=== PATIENT | female | born 1950 | race African-American/Black ===

== ENCOUNTER 2022-07-15 16:25 | Inpatient (IN) | payer OTHER, MEDICARE ==
[~2022-07-15] VITALS: Ht 91.4 cm; Wt 81.3 kg
[2022-07-15] MEDS ORDERED: ACETAMINOPHEN 650MG SUPP PR STA (17:12)
[2022-07-15] MEDS ORDERED: VANCOMYCIN 1G PREMIX 200 ML IV ONE (17:15)
[2022-07-15] MEDS ORDERED: PIPERACILLIN/TAZ 3.375G PREMIX 50 ML IV ONE (17:15)
[2022-07-15 17:37] LABS: HEMATOCRIT. 31.4 % (36.0-48.0); HEMOGLOBIN. 10.1 g/dL (12.0-16.0); MEAN CORPUSCULAR HEMOGLOBIN 27.1 pg (28.0-32.0); MEAN CORPUSCULAR VOLUME 84.1 fL (81.0-99.0); MEAN PLATELET VOLUME 10.9 fl (7.4-10.4); PLATELET 115 x1000/uL (130-400); RED BLOOD CELL COUNT 3.74 mill/uL (4.2-5.4); RED CELL DISTRIBUTION WIDTH 16.8 % (11.6-14.6)
[2022-07-15 17:39] LABS: BG BASE EXCESS -2.2 mmol/L (-2.0-2.0); BG CARBOXYHEMOGLOBIN 0.2 % (0.5-1.5); BG DEOXYHEMOGLOBIN 10.9 % (0.0-5.0); BG HCO3 ACT 20.7 mmol/L (22.0-26.0); BG METHEMOGLOBIN 0.5 % (0.0-1.5); BG OXYHEMOGLOBIN 88.4 % (94.0-97.0); BG PCO2 29.6 mmHg (35.0-45.0); BG PH 7.463 (7.350-7.450); BG SAMPLE SITE RIGHT RADIAL; BG TOTAL HEMOGLOBIN 10.6 g/dL (12.0-18.0); BG VENT MODE ROOM AIR
[2022-07-15 17:40] LABS: CHLORIDE 99 mEq/L (98-107)
[2022-07-15 18:13] LABS: PLATELET ESTIMATE DECREASED
[2022-07-15] MEDS ORDERED: INSULIN REGULAR (HUMULIN R) 300UNITS/3ML VIAL IV NR (18:15)
[2022-07-15] MEDS ORDERED: HEPARIN 5000 UNITS/ML VIAL IV ONE (18:30)
[2022-07-15] MEDS ORDERED: HEPARIN 25,000 UNITS PREMIX 250 ML IV ONE (18:30)
[2022-07-15] MEDS ORDERED: ASPIRIN 81MG TABLET PO ONE (18:30)
[2022-07-15] MEDS ORDERED: SODIUM CHLORIDE 0.9% 1,000 ML IV ONE (18:30)
[2022-07-15] MEDS ORDERED: HEPARIN BOLUS PRN aPTT <30 IV (18:45)
[2022-07-15] MEDS ORDERED: HEPARIN 25,000 UNITS PREMIX 250 ML IV SCH (18:45)
[2022-07-15] MEDS ORDERED: HEPARIN BOLUS PRN aPTT 30-44 IV (18:45)
[2022-07-15] MEDS ORDERED: HEPARIN IV NR (19:00)
[2022-07-15] MEDS ORDERED: [UNRECOGNIZED DRUG - OTHER] IV NR (19:00)
[2022-07-15 19:34] LABS: INR 1.1; PARTIAL THROMBOPLASTIN TIME 30.9 sec (23.4-31.0); PROTHROMBIN TIME 11.8 sec (9.6-11.0)
[2022-07-15] MEDS ORDERED: ACETAMINOPHEN 325MG TABLET PO ONE (21:15)
[2022-07-15] MEDS ORDERED: HYDRALAZINE 20MG/ML VIAL IV PRN (23:00)
[2022-07-15] MEDS ORDERED: VANCOMYCIN 1G PREMIX 200 ML IV SCH (23:00)
[2022-07-15] MEDS ORDERED: ZOLPIDEM TARTRATE 5MG TABLET PO PRN (23:00)
[2022-07-15] MEDS ORDERED: DEXTROSE 50% WATER 50ML SYRINGE IV PRN (23:00)
[2022-07-15] MEDS ORDERED: GUAIFENESIN 200MG/10ML SUGAR FREE UDC PO PRN (23:00)
[2022-07-15] MEDS ORDERED: MEROPENEM 1,000 MG in SODIUM CHLORIDE 0.9% 100 ML IV SCH (23:00)
[2022-07-15] MEDS ORDERED: ACETAMINOPHEN 325MG TABLET PO PRN (23:00)
[2022-07-15] MEDS ORDERED: ONDANSETRON HCL 4MG/2ML INJ IV PRN (23:00)
[2022-07-16] VITALS (14 sets, daily range): BP systolic 103–170; BP diastolic 46–80
[2022-07-16] MEDS ORDERED: MEROPENEM 500MG in NORMAL SALINE 50ML IV SCH (01:00)
[2022-07-16 04:31] LABS: HEPATITIS B SURFACE ANTIGEN NEGATIVE
[2022-07-16] MEDS: BLOOD SUGAR DIAGNOSTIC STRIP TEST SCH ×4 (06:20→20:49)
[2022-07-16] MEDS: MEROPENEM 500MG in NORMAL SALINE 50ML IV SCH (06:21)
[2022-07-16] MEDS: SODIUM CHLORIDE 0.9% INJ 3ML FLUSH IVF SCH ×3 (06:21→20:52)
[2022-07-16 08:53] LABS: HEMATOCRIT. 28.4 % (36.0-48.0); HEMOGLOBIN. 9.2 g/dL (12.0-16.0); MEAN CORPUSCULAR HEMOGLOBIN 27.3 pg (28.0-32.0); MEAN CORPUSCULAR VOLUME 84.3 fL (81.0-99.0); MEAN PLATELET VOLUME 11.2 fl (7.4-10.4); PLATELET 112 x1000/uL (130-400); RED BLOOD CELL COUNT 3.37 mill/uL (4.2-5.4); RED CELL DISTRIBUTION WIDTH 16.8 % (11.6-14.6)
[2022-07-16] MEDS ORDERED: AMLODIPINE 5MG TABLET PO SCH (09:00)
[2022-07-16] MEDS ORDERED: CARVEDILOL 6.25 MG TABLET PO SCH (09:00)
[2022-07-16 09:09] LABS: CHLORIDE 100 mEq/L (98-107)
[2022-07-16] MEDS: OMEPRAZOLE 20MG CAPSULE EXTENDED RELEASE PO SCH ×2 (10:25→20:51)
[2022-07-16] MEDS: INSULIN LISPRO 100 UNITS/ML SUBCUT SCH ×4 (11:05→20:49)
[2022-07-16 11:15] LABS: PLATELET ESTIMATE DECREASED
[2022-07-16] MEDS ORDERED: VANCOMYCIN 1G PREMIX 200 ML IV NR (15:00)
[2022-07-16] MEDS ORDERED: VANCOMYCIN 1G PREMIX 200 ML IV SCH (15:00)
[2022-07-16] MEDS: CALCIUM ACETATE 667MG CAPSULE PO SCH (19:03)
[2022-07-16] MEDS: CARVEDILOL 12.5MG TABLET PO SCH (20:51)
[2022-07-16] MEDS: ATORVASTATIN CALCIUM 40MG TABLET PO SCH (20:51)
[2022-07-16] MEDS: INSULIN GLARGINE 100 UNITS/ML SUBCUT SCH ×2 (20:52→20:54)
[2022-07-17] VITALS: BP 130/50
[2022-07-17 04:00] VITALS: BP 136/53
[2022-07-17] MEDS: MEROPENEM 500MG in NORMAL SALINE 50ML IV SCH (05:56)
[2022-07-17] MEDS: SODIUM CHLORIDE 0.9% INJ 3ML FLUSH IVF SCH ×3 (05:56→22:00)
[2022-07-17] MEDS: BLOOD SUGAR DIAGNOSTIC STRIP TEST SCH ×4 (06:45→21:00)
[2022-07-17] MEDS: OMEPRAZOLE 20MG CAPSULE EXTENDED RELEASE PO SCH ×2 (06:47→21:50)
[2022-07-17 08:00] VITALS: BP 117/49
[2022-07-17] MEDS: CALCITRIOL 0.25MCG CAPSULE PO SCH (08:19)
[2022-07-17] MEDS: FOLIC ACID/VITAMIN B COMP W-C TABLET PO SCH (08:19)
[2022-07-17] MEDS: CALCIUM ACETATE 667MG CAPSULE PO SCH ×2 (08:19→17:53)
[2022-07-17] MEDS: ASPIRIN 81MG TABLET PO SCH (08:20)
[2022-07-17] MEDS: CLOPIDOGREL 75MG TABLET PO SCH (08:20)
[2022-07-17] MEDS: NIFEDIPINE XL 30MG TAB PO SCH (08:20)
[2022-07-17] MEDS: ALLOPURINOL 100 MG TABLET PO SCH (08:20)
[2022-07-17] MEDS: FOLIC ACID 1MG TABLET PO SCH (08:20)
[2022-07-17] MEDS: CARVEDILOL 12.5MG TABLET PO SCH ×2 (08:27→21:50)
[2022-07-17] MEDS: INSULIN LISPRO 100 UNITS/ML SUBCUT SCH ×4 (08:28→21:00)
[2022-07-17] MEDS ORDERED: NIFEDIPINE XL 60MG TAB PO SCH (09:00)
[2022-07-17 12:00] VITALS: BP 114/51
[2022-07-17] MEDS ORDERED: ZOLPIDEM TARTRATE 5MG TABLET PO PRN (14:30)
[2022-07-17 16:00] VITALS: BP 118/52
[2022-07-17 20:00] VITALS: BP 128/56
[2022-07-17] MEDS: ATORVASTATIN CALCIUM 40MG TABLET PO SCH (21:50)
[2022-07-17] MEDS: INSULIN GLARGINE 100 UNITS/ML SUBCUT SCH (22:00)
[2022-07-17 22:58] LABS: CLARITY URINE TURBID (CLEAR); COLOR URINE DARK YELLOW (YELLOW); KETONES URINE TRACE (NEGATIVE); LEUKOCYTE ESTERASE URINE NEGATIVE (NEGATIVE); NITRITE URINE NEGATIVE (NEGATIVE); OCCULT BLOOD URINE 2+ (NEGATIVE); PH URINE 5.5 (4.5-8.0); PROTEIN URINE 4+ (NEGATIVE); SPECIFIC GRAVITY URINE 1.019 (1.005-1.030)
[2022-07-18] VITALS (17 sets, daily range): BP systolic 119–153; BP diastolic 50–66
[2022-07-18] MEDS: OMEPRAZOLE 20MG CAPSULE EXTENDED RELEASE PO SCH ×2 (06:57→21:37)
[2022-07-18] MEDS: BLOOD SUGAR DIAGNOSTIC STRIP TEST SCH ×4 (06:58→21:42)
[2022-07-18] MEDS: SODIUM CHLORIDE 0.9% INJ 3ML FLUSH IVF SCH ×3 (06:58→21:42)
[2022-07-18] MEDS: CARVEDILOL 12.5MG TABLET PO SCH ×2 (09:00→21:37)
[2022-07-18] MEDS: CALCIUM ACETATE 667MG CAPSULE PO SCH ×2 (09:35→17:52)
[2022-07-18] MEDS: CLOPIDOGREL 75MG TABLET PO SCH (09:35)
[2022-07-18] MEDS: CALCITRIOL 0.25MCG CAPSULE PO SCH (09:35)
[2022-07-18] MEDS: NIFEDIPINE XL 30MG TAB PO SCH (09:35)
[2022-07-18] MEDS: ASPIRIN 81MG TABLET PO SCH (09:35)
[2022-07-18] MEDS: FOLIC ACID/VITAMIN B COMP W-C TABLET PO SCH (09:36)
[2022-07-18] MEDS: DIPHENHYDRAMINE 50MG/ML VIAL IV PRN ×2 (09:36→21:38)
[2022-07-18] MEDS: FOLIC ACID 1MG TABLET PO SCH (09:36)
[2022-07-18] MEDS: ALLOPURINOL 100 MG TABLET PO SCH (09:36)
[2022-07-18] MEDS: INSULIN LISPRO 100 UNITS/ML SUBCUT SCH ×3 (09:42→21:00)
[2022-07-18] MEDS ORDERED: VANCOMYCIN 750MG PREMIX 150 ML IV NR (18:00)
[2022-07-18] MEDS: ATORVASTATIN CALCIUM 40MG TABLET PO SCH (21:37)
[2022-07-18] MEDS: INSULIN GLARGINE 100 UNITS/ML SUBCUT SCH (21:54)
[2022-07-19] VITALS: BP 123/73
[2022-07-19 04:00] VITALS: BP 128/52
[2022-07-19] MEDS: BLOOD SUGAR DIAGNOSTIC STRIP TEST SCH ×2 (06:00→21:00)
[2022-07-19] MEDS: SODIUM CHLORIDE 0.9% INJ 3ML FLUSH IVF SCH ×2 (06:18→22:04)
[2022-07-19] MEDS: OMEPRAZOLE 20MG CAPSULE EXTENDED RELEASE PO SCH ×2 (07:20→20:50)
[2022-07-19] MEDS: CALCIUM ACETATE 667MG CAPSULE PO SCH (07:50)
[2022-07-19] MEDS: INSULIN LISPRO 100 UNITS/ML SUBCUT SCH ×3 (07:50→21:03)
[2022-07-19 08:00] VITALS: BP 113/42
[2022-07-19] MEDS ORDERED: FENTANYL CITRATE/PF 50MCG/ML 2ML VIAL ONE (08:07)
[2022-07-19] MEDS ORDERED: MIDAZOLAM HCL 2 MG/2 ML VIAL ONE (08:07)
[2022-07-19] MEDS ORDERED: LIDOCAINE 2% 6ML GLYDO MM ONE (08:07)
[2022-07-19] MEDS ORDERED: TETRACAINE/BENZOCAINE/BUTAMBEN 20 GM SPRAY MM ONE (08:08)
[2022-07-19] MEDS ORDERED: DIPHENHYDRAMINE 50MG/ML VIAL ONE (08:08)
[2022-07-19] MEDS: CLOPIDOGREL 75MG TABLET PO SCH (09:00)
[2022-07-19] MEDS: ALLOPURINOL 100 MG TABLET PO SCH (09:00)
[2022-07-19] MEDS: ASPIRIN 81MG TABLET PO SCH (09:00)
[2022-07-19] MEDS: FOLIC ACID 1MG TABLET PO SCH (09:00)
[2022-07-19] MEDS: CALCITRIOL 0.25MCG CAPSULE PO SCH (09:00)
[2022-07-19] MEDS: NIFEDIPINE XL 30MG TAB PO SCH (09:00)
[2022-07-19] MEDS: FOLIC ACID/VITAMIN B COMP W-C TABLET PO SCH (09:00)
[2022-07-19] MEDS: CARVEDILOL 12.5MG TABLET PO SCH ×2 (09:00→20:50)
[2022-07-19] MEDS ORDERED: LIDOCAINE HCL 1% 10 MG/ML 10ML VIAL ONE (11:13)
[2022-07-19] MEDS ORDERED: SODIUM BICARBONATE 4% (2.4MEQ) 5ML VIAL IV ONE (11:13)
[2022-07-19 11:56] VITALS: BP 115/45
[2022-07-19 16:00] VITALS: BP 140/62
[2022-07-19 17:58] LABS: HEPATITIS B SURFACE ANTIGEN NEGATIVE
[2022-07-19] MEDS: ACETAMINOPHEN 325MG TABLET PO PRN (18:54)
[2022-07-19] MEDS: DIPHENHYDRAMINE 50MG/ML VIAL IV PRN (19:10)
[2022-07-19 20:00] VITALS: BP 136/58
[2022-07-19] MEDS: ATORVASTATIN CALCIUM 40MG TABLET PO SCH (20:50)
[2022-07-19] MEDS: INSULIN GLARGINE 100 UNITS/ML SUBCUT SCH (22:00)
[2022-07-20] VITALS (8 sets, daily range): BP systolic 118–141; BP diastolic 49–65
[2022-07-20] MEDS: ACETAMINOPHEN 325MG TABLET PO PRN (01:01)
[2022-07-20] MEDS: SODIUM CHLORIDE 0.9% INJ 3ML FLUSH IVF SCH ×3 (06:31→22:00)
[2022-07-20] MEDS: OMEPRAZOLE 20MG CAPSULE EXTENDED RELEASE PO SCH ×2 (06:36→21:00)
[2022-07-20] MEDS: BLOOD SUGAR DIAGNOSTIC STRIP TEST SCH ×2 (07:20→21:00)
[2022-07-20 07:36] LABS: HEMATOCRIT. 29.3 % (36.0-48.0); HEMOGLOBIN. 9.6 g/dL (12.0-16.0); MEAN CORPUSCULAR HEMOGLOBIN 26.9 pg (28.0-32.0); MEAN CORPUSCULAR VOLUME 82.4 fL (81.0-99.0); PLATELET 191 x1000/uL (130-400); RED BLOOD CELL COUNT 3.56 mill/uL (4.2-5.4); RED CELL DISTRIBUTION WIDTH 16.5 % (11.6-14.6)
[2022-07-20] MEDS: CALCIUM ACETATE 667MG CAPSULE PO SCH ×2 (07:50→17:50)
[2022-07-20] MEDS: INSULIN LISPRO 100 UNITS/ML SUBCUT SCH ×3 (07:50→21:00)
[2022-07-20] MEDS: FOLIC ACID/VITAMIN B COMP W-C TABLET PO SCH (09:11)
[2022-07-20] MEDS: ASPIRIN 81MG TABLET PO SCH (09:11)
[2022-07-20] MEDS: ALLOPURINOL 100 MG TABLET PO SCH (09:12)
[2022-07-20] MEDS: FOLIC ACID 1MG TABLET PO SCH (09:12)
[2022-07-20] MEDS: CARVEDILOL 12.5MG TABLET PO SCH ×2 (09:12→21:00)
[2022-07-20] MEDS: CLOPIDOGREL 75MG TABLET PO SCH (09:12)
[2022-07-20] MEDS: CALCITRIOL 0.25MCG CAPSULE PO SCH (09:12)
[2022-07-20] MEDS: NIFEDIPINE XL 30MG TAB PO SCH (09:13)
[2022-07-20 13:14] LABS: PLATELET ESTIMATE NORMAL
[2022-07-20] MEDS ORDERED: VANCOMYCIN 500MG PREMIX 100 ML IV SCH (21:00)
[2022-07-20] MEDS: RIFAMPIN 300MG CAPSULE PO SCH (21:00)
[2022-07-20] MEDS: ATORVASTATIN CALCIUM 40MG TABLET PO SCH (21:00)
[2022-07-20] MEDS: INSULIN GLARGINE 100 UNITS/ML SUBCUT SCH (22:00)
[2022-07-21] VITALS: BP 127/49
[2022-07-21] MEDS: SODIUM CHLORIDE 0.9% INJ 3ML FLUSH IVF SCH ×3 (06:00→23:04)
[2022-07-21 08:06] VITALS: BP 137/55
[2022-07-21] MEDS ORDERED: LIDOCAINE HCL 1% 10 MG/ML 10ML VIAL ONE ×2 (08:38→08:41)
[2022-07-21] MEDS ORDERED: THROMBIN (BOVINE) 5000 UNITS/VIAL TOP ONE (08:40)
[2022-07-21] MEDS ORDERED: POLYMYXIN B SULFATE 500000 UNITS/VIAL ONE (08:40)
[2022-07-21] MEDS ORDERED: HEPARIN SODIUM 1,000 UNIT/1ML VIAL IV ONE (08:41)
[2022-07-21] MEDS ORDERED: BUPIVACAINE HCL/PF 0.5% (5MG/ML) 10ML ONE (08:41)
[2022-07-21] MEDS ORDERED: BACITRACIN 15GM TUBE TOP ONE (08:42)
[2022-07-21] MEDS: CLOPIDOGREL 75MG TABLET PO SCH (09:00)
[2022-07-21] MEDS ORDERED: FENTANYL CITRATE/PF 50MCG/ML 2ML VIAL ONE (11:08)
[2022-07-21 12:00] VITALS: BP 144/59
[2022-07-21] MEDS ORDERED: VANCOMYCIN HCL 1 GM/VIAL ONE (13:18)
[2022-07-21] MEDS ORDERED: ONDANSETRON HCL 4MG/2ML INJ IV PRN (14:45)
[2022-07-21] MEDS ORDERED: HYDROMORPHONE HCL/PF 2MG/ML CPJ IV PRN (14:45)
[2022-07-21] MEDS: NIFEDIPINE XL 30MG TAB PO SCH (16:28)
[2022-07-21] MEDS: FOLIC ACID 1MG TABLET PO SCH (16:28)
[2022-07-21] MEDS: ALLOPURINOL 100 MG TABLET PO SCH (16:28)
[2022-07-21] MEDS: CALCITRIOL 0.25MCG CAPSULE PO SCH (16:28)
[2022-07-21] MEDS: FOLIC ACID/VITAMIN B COMP W-C TABLET PO SCH (16:28)
[2022-07-21] MEDS: RIFAMPIN 300MG CAPSULE PO SCH ×2 (16:28→23:00)
[2022-07-21] MEDS: CALCIUM ACETATE 667MG CAPSULE PO SCH (16:28)
[2022-07-21] MEDS: FAMOTIDINE 20MG TABLET PO SCH (16:28)
[2022-07-21] MEDS: CARVEDILOL 12.5MG TABLET PO SCH ×2 (16:37→23:01)
[2022-07-21] MEDS: BLOOD SUGAR DIAGNOSTIC STRIP TEST SCH ×2 (17:20→21:00)
[2022-07-21] MEDS: INSULIN LISPRO 100 UNITS/ML SUBCUT SCH ×2 (17:50→21:00)
[2022-07-21] MEDS ORDERED: VANCOMYCIN 500MG PREMIX 100 ML IV SCH (18:00)
[2022-07-21 20:00] VITALS: BP 137/59
[2022-07-21] MEDS: INSULIN GLARGINE 100 UNITS/ML SUBCUT SCH (22:00)
[2022-07-21] MEDS: ATORVASTATIN CALCIUM 40MG TABLET PO SCH (23:01)
[2022-07-21] MEDS: EPOETIN ALFA-EPBX 4,000 UNIT/ML VIAL SUBCUT SCH (23:02)
[2022-07-21] MEDS: MORPHINE SULFATE 4 MG/ML CPJ (NOT FOR IM USE) IV PRN (23:03)
[2022-07-21] MEDS: DEXT 5%/0.45% NACL 1000ML 1,000 ML IV SCH ×2 (23:04)
[2022-07-22] VITALS (14 sets, daily range): BP systolic 120–169; BP diastolic 58–82
[2022-07-22] MEDS: SODIUM CHLORIDE 0.9% INJ 3ML FLUSH IVF SCH ×3 (06:33→21:32)
[2022-07-22] MEDS: CALCIUM ACETATE 667MG CAPSULE PO SCH ×2 (07:50→17:50)
[2022-07-22] MEDS: INSULIN LISPRO 100 UNITS/ML SUBCUT SCH ×4 (07:50→21:00)
[2022-07-22] MEDS: BLOOD SUGAR DIAGNOSTIC STRIP TEST SCH ×4 (07:53→21:32)
[2022-07-22] MEDS: MORPHINE SULFATE 4 MG/ML CPJ (NOT FOR IM USE) IV PRN (08:44)
[2022-07-22] MEDS: RIFAMPIN 300MG CAPSULE PO SCH ×2 (09:00→21:31)
[2022-07-22] MEDS: FOLIC ACID 1MG TABLET PO SCH (09:00)
[2022-07-22] MEDS: CLOPIDOGREL 75MG TABLET PO SCH (09:00)
[2022-07-22] MEDS: ALLOPURINOL 100 MG TABLET PO SCH (09:00)
[2022-07-22] MEDS: CARVEDILOL 12.5MG TABLET PO SCH ×3 (09:00→21:31)
[2022-07-22] MEDS: CALCITRIOL 0.25MCG CAPSULE PO SCH (09:00)
[2022-07-22] MEDS: NIFEDIPINE XL 30MG TAB PO SCH (09:00)
[2022-07-22] MEDS: FOLIC ACID/VITAMIN B COMP W-C TABLET PO SCH (09:00)
[2022-07-22] MEDS: FAMOTIDINE 20MG TABLET PO SCH (09:23)
[2022-07-22] MEDS: PANTOPRAZOLE SODIUM 40 MG/VIAL IV SCH (15:51)
[2022-07-22] MEDS: METOCLOPRAMIDE HCL 10MG/2ML VIAL IV PRN (15:51)
[2022-07-22] MEDS: DEXT 5%/0.45% NACL 1000ML 1,000 ML IV SCH (16:00)
[2022-07-22] MEDS ORDERED: NALOXONE HCL 0.4MG/ML VIAL IV PRN (19:00)
[2022-07-22 20:54] LABS: HEPATITIS B SURFACE ANTIGEN NEGATIVE
[2022-07-22] MEDS: ATORVASTATIN CALCIUM 40MG TABLET PO SCH (21:31)
[2022-07-22] MEDS: INSULIN GLARGINE 100 UNITS/ML SUBCUT SCH (22:00)
[2022-07-23] VITALS: BP 155/61
[2022-07-23] MEDS ORDERED: DEXT 5%/0.45% NACL 1000ML 1,000 ML IV SCH
[2022-07-23 04:00] VITALS: BP 156/64
[2022-07-23] MEDS: SODIUM CHLORIDE 0.9% INJ 3ML FLUSH IVF SCH ×3 (04:58→21:05)
[2022-07-23 05:46] LABS: HEMATOCRIT. 27.8 % (36.0-48.0); MEAN CORPUSCULAR HEMOGLOBIN 26.6 pg (28.0-32.0); MEAN CORPUSCULAR VOLUME 82.2 fL (81.0-99.0); MEAN PLATELET VOLUME 9.8 fl (7.4-10.4); PLATELET 231 x1000/uL (130-400); RED BLOOD CELL COUNT 3.39 mill/uL (4.2-5.4); RED CELL DISTRIBUTION WIDTH 16.7 % (11.6-14.6)
[2022-07-23] MEDS: BLOOD SUGAR DIAGNOSTIC STRIP TEST SCH ×4 (07:20→20:33)
[2022-07-23] MEDS: INSULIN LISPRO 100 UNITS/ML SUBCUT SCH ×4 (07:50→21:00)
[2022-07-23 08:00] VITALS: BP 132/67
[2022-07-23] MEDS: DIPHENHYDRAMINE 50MG/ML VIAL IV PRN ×4 (08:39→22:05)
[2022-07-23] MEDS: CALCIUM ACETATE 667MG CAPSULE PO SCH ×2 (08:41→17:38)
[2022-07-23] MEDS: PANTOPRAZOLE SODIUM 40 MG/VIAL IV SCH (08:41)
[2022-07-23] MEDS: ALLOPURINOL 100 MG TABLET PO SCH (08:41)
[2022-07-23] MEDS: CLOPIDOGREL 75MG TABLET PO SCH (08:41)
[2022-07-23] MEDS: CALCITRIOL 0.25MCG CAPSULE PO SCH (08:41)
[2022-07-23] MEDS: FOLIC ACID 1MG TABLET PO SCH (08:41)
[2022-07-23] MEDS: NIFEDIPINE XL 30MG TAB PO SCH (08:42)
[2022-07-23] MEDS: RIFAMPIN 300MG CAPSULE PO SCH ×2 (08:42→21:05)
[2022-07-23] MEDS: FOLIC ACID/VITAMIN B COMP W-C TABLET PO SCH (09:00)
[2022-07-23 12:11] VITALS: BP 167/53
[2022-07-23 13:21] LABS: PLATELET ESTIMATE NORMAL
[2022-07-23 16:00] VITALS: BP 171/63
[2022-07-23] MEDS: CLONIDINE 0.1MG TABLET PO PRN (17:38)
[2022-07-23 20:00] VITALS: BP 169/69
[2022-07-23] MEDS: CARVEDILOL 12.5MG TABLET PO SCH (21:05)
[2022-07-23] MEDS: ATORVASTATIN CALCIUM 40MG TABLET PO SCH (21:05)
[2022-07-23] MEDS: DEXT 5%/0.45% NACL 1000ML 1,000 ML IV SCH (22:05)
[2022-07-23] MEDS: INSULIN GLARGINE 100 UNITS/ML SUBCUT SCH (22:10)
[2022-07-24] VITALS: BP 157/47
[2022-07-24] MEDS: DIPHENHYDRAMINE 50MG/ML VIAL IV PRN ×2 (02:57→09:08)
[2022-07-24] MEDS: SODIUM CHLORIDE 0.9% INJ 3ML FLUSH IVF SCH ×2 (05:35→14:08)
[2022-07-24] MEDS: INSULIN LISPRO 100 UNITS/ML SUBCUT SCH ×4 (07:50→21:00)
[2022-07-24 08:00] VITALS: BP 129/98
[2022-07-24] MEDS: BLOOD SUGAR DIAGNOSTIC STRIP TEST SCH ×4 (08:11→21:00)
[2022-07-24] MEDS: FOLIC ACID/VITAMIN B COMP W-C TABLET PO SCH (08:50)
[2022-07-24] MEDS: ALLOPURINOL 100 MG TABLET PO SCH (08:51)
[2022-07-24] MEDS: CLOPIDOGREL 75MG TABLET PO SCH (08:51)
[2022-07-24] MEDS: FOLIC ACID 1MG TABLET PO SCH (08:51)
[2022-07-24] MEDS: CALCIUM ACETATE 667MG CAPSULE PO SCH ×2 (08:51→18:38)
[2022-07-24] MEDS: PANTOPRAZOLE SODIUM 40 MG/VIAL IV SCH (08:51)
[2022-07-24] MEDS: NIFEDIPINE XL 60MG TAB PO SCH (09:00)
[2022-07-24] MEDS: CARVEDILOL 12.5MG TABLET PO SCH (09:07)
[2022-07-24] MEDS: CALCITRIOL 0.25MCG CAPSULE PO SCH (09:08)
[2022-07-24] MEDS: RIFAMPIN 300MG CAPSULE PO SCH (09:08)
[2022-07-24 12:00] VITALS: BP 151/45
[2022-07-24 16:23] VITALS: BP 166/69
[2022-07-24] MEDS ORDERED: HYDRALAZINE 10 MG in SODIUM CHLORIDE 0.9% 49.5 ML IV PRN (17:30)
[2022-07-24] MEDS: HYDROXYZINE 25MG TABLET PO PRN (18:39)
[2022-07-24 20:00] VITALS: BP 167/63
[2022-07-24] MEDS: INSULIN GLARGINE 100 UNITS/ML SUBCUT SCH (22:00)
[2022-07-25] VITALS (12 sets, daily range): BP systolic 113–171; BP diastolic 53–83
[2022-07-25] MEDS: ATORVASTATIN CALCIUM 40MG TABLET PO SCH ×2 (00:16→21:04)
[2022-07-25] MEDS: CARVEDILOL 12.5MG TABLET PO SCH ×3 (00:17→21:04)
[2022-07-25] MEDS: EPOETIN ALFA-EPBX 4,000 UNIT/ML VIAL SUBCUT SCH (00:19)
[2022-07-25] MEDS: DEXT 5%/0.45% NACL 1000ML 1,000 ML IV SCH (00:20)
[2022-07-25] MEDS: SODIUM CHLORIDE 0.9% INJ 3ML FLUSH IVF SCH ×4 (00:28→21:10)
[2022-07-25] MEDS: BLOOD SUGAR DIAGNOSTIC STRIP TEST SCH ×4 (07:20→21:10)
[2022-07-25] MEDS: INSULIN LISPRO 100 UNITS/ML SUBCUT SCH ×4 (07:50→21:09)
[2022-07-25] MEDS ORDERED: LIDOCAINE HCL 1% 10 MG/ML 10ML VIAL ONE (08:08)
[2022-07-25] MEDS: PANTOPRAZOLE SODIUM 40 MG/VIAL IV SCH (09:00)
[2022-07-25] MEDS: ALLOPURINOL 100 MG TABLET PO SCH (11:03)
[2022-07-25] MEDS: CALCITRIOL 0.25MCG CAPSULE PO SCH (11:03)
[2022-07-25] MEDS: FOLIC ACID/VITAMIN B COMP W-C TABLET PO SCH (11:03)
[2022-07-25] MEDS: CLOPIDOGREL 75MG TABLET PO SCH (11:04)
[2022-07-25] MEDS: FOLIC ACID 1MG TABLET PO SCH (11:04)
[2022-07-25] MEDS: CALCIUM ACETATE 667MG CAPSULE PO SCH ×2 (11:04→17:50)
[2022-07-25] MEDS: NIFEDIPINE XL 60MG TAB PO SCH (11:05)
[2022-07-25] MEDS: DIPHENHYDRAMINE 50MG/ML VIAL IV PRN (11:35)
[2022-07-25] MEDS ORDERED: HYDROXYZINE 25MG TABLET PO NR (12:00)
[2022-07-25] MEDS: CLONIDINE 0.1MG TABLET PO PRN (13:09)
[2022-07-25] MEDS ORDERED: DAPTOMYCIN 500 MG in SODIUM CHLORIDE 0.9% 50 ML IV SCH (16:00)
[2022-07-25] MEDS ORDERED: VANCOMYCIN 500MG PREMIX 100 ML IV NR (18:00)
[2022-07-25 20:30] LABS: BASOPHILS % 0.1 % (0.0-2.0); EOSINOPHILS % 2.9 % (0.0-5.0); HEMATOCRIT. 29.9 % (36.0-48.0); HEMOGLOBIN. 9.6 g/dL (12.0-16.0); LYMPHOCYTES % 8.4 % (20.0-50.0); MEAN CORPUSCULAR HEMOGLOBIN 26.3 pg (28.0-32.0); MEAN CORPUSCULAR VOLUME 82.4 fL (81.0-99.0); MEAN PLATELET VOLUME 9.2 fl (7.4-10.4); MONOCYTES % 5.2 % (2.0-8.0); NEUTROPHILS % 83.4 % (40.0-76.0); PLATELET 282 x1000/uL (130-400); RED BLOOD CELL COUNT 3.63 mill/uL (4.2-5.4); RED CELL DISTRIBUTION WIDTH 16.4 % (11.6-14.6)
[2022-07-25] MEDS: HYDROXYZINE 25MG TABLET PO PRN (21:04)
[2022-07-25] MEDS: INSULIN GLARGINE 100 UNITS/ML SUBCUT SCH (21:09)
[2022-07-26] VITALS (17 sets, daily range): BP systolic 125–167; BP diastolic 46–69
[2022-07-26] MEDS: SODIUM CHLORIDE 0.9% INJ 3ML FLUSH IVF SCH ×2 (05:49→14:12)
[2022-07-26] MEDS: BLOOD SUGAR DIAGNOSTIC STRIP TEST SCH ×2 (06:45→12:20)
[2022-07-26 06:49] LABS: CREATINE KINASE 36 IU/L (26-192)
[2022-07-26] MEDS: INSULIN LISPRO 100 UNITS/ML SUBCUT SCH ×2 (07:50→12:50)
[2022-07-26] MEDS ORDERED: LORAZEPAM 2MG/ML CPJ IV NR ×2 (08:00→10:00)
[2022-07-26] MEDS: ALLOPURINOL 100 MG TABLET PO SCH (09:00)
[2022-07-26] MEDS: PANTOPRAZOLE SODIUM 40 MG/VIAL IV SCH (09:00)
[2022-07-26] MEDS: CLOPIDOGREL 75MG TABLET PO SCH (09:01)
[2022-07-26] MEDS: CALCIUM ACETATE 667MG CAPSULE PO SCH (09:01)
[2022-07-26] MEDS: FOLIC ACID 1MG TABLET PO SCH (09:01)
[2022-07-26] MEDS: NIFEDIPINE XL 60MG TAB PO SCH (09:09)
[2022-07-26] MEDS: CARVEDILOL 12.5MG TABLET PO SCH (09:10)
[2022-07-26] MEDS: CALCITRIOL 0.25MCG CAPSULE PO SCH (09:16)
[2022-07-26] MEDS: FOLIC ACID/VITAMIN B COMP W-C TABLET PO SCH (09:16)
[2022-07-26] MEDS: METOCLOPRAMIDE HCL 10MG/2ML VIAL IV PRN (09:56)
[2022-07-26] MEDS ORDERED: FENTANYL CITRATE/PF 50MCG/ML 2ML VIAL ONE (10:28)
[2022-07-26] MEDS ORDERED: FENTANYL CITRATE/PF 50MCG/ML 2ML VIAL IV NR (11:00)
[2022-07-26] MEDS ORDERED: DAPTOMYCIN 400 MG in SODIUM CHLORIDE 0.9% 50 ML IV SCH (15:00)
== END 2022-07-26 16:35 | disposition home health service (06) | DRG 252 ==
LOC: ER 16:25 → EDBEDREQ 17:20 → EDBEDREQTM 21:19 → EDBEDREQSVC 21:19 → EDBEDREQ 21:19 → 7WST 07-16 02:12 → 6EST 07-18 12:53
PROVIDERS: ADMIT Internal Medicine; ATTEND Internal Medicine
PROC: 0Y9C3ZZ Drainage of Right Upper Leg, Percutaneous Approach (ICD-10-PCS; 2022-07-19)
PROC: 04PY07Z Removal of Autologous Tissue Substitute from Lower Artery, Open Approach (ICD-10-PCS; principal; 2022-07-21)
PROC: 02HV33Z Insertion of Infusion Device into Superior Vena Cava, Percutaneous Approach (ICD-10-PCS; 2022-07-21)
PROC: B548ZZA Ultrasonography of Superior Vena Cava, Guidance (ICD-10-PCS; 2022-07-21)
PROC: B5181ZA Fluoroscopy of Superior Vena Cava using Low Osmolar Contrast, Guidance (ICD-10-PCS; 2022-07-21)
PROC: 0JH63XZ Insertion of Tunneled Vascular Access Device into Chest Subcutaneous Tissue and Fascia, Percutaneous Approach (ICD-10-PCS; 2022-07-26)
PROC: 02HV33Z Insertion of Infusion Device into Superior Vena Cava, Percutaneous Approach (ICD-10-PCS; 2022-07-26)
PROC: B5181ZA Fluoroscopy of Superior Vena Cava using Low Osmolar Contrast, Guidance (ICD-10-PCS; 2022-07-26)
DX: T82.7XXA Infection and inflammatory reaction due to other cardiac and vascular devices, implants and grafts, initial encounter (principal); A41.2 Sepsis due to unspecified staphylococcus; I21.A1 Myocardial infarction type 2; N18.6 End stage renal disease; R65.20 Severe sepsis without septic shock; I12.0 Hypertensive chronic kidney disease with stage 5 chronic kidney disease or end stage renal disease; L02.214 Cutaneous abscess of groin; E11.22 Type 2 diabetes mellitus with diabetic chronic kidney disease; D69.6 Thrombocytopenia, unspecified; I25.10 Atherosclerotic heart disease of native coronary artery without angina pectoris; D64.9 Anemia, unspecified; Z95.5 Presence of coronary angioplasty implant and graft; Z99.2 Dependence on renal dialysis; Y84.1 Kidney dialysis as the cause of abnormal reaction of the patient, or of later complication, without mention of misadventure at the time of the procedure; Y92.89 Other specified places as the place of occurrence of the external cause
CPT/HCPCS: 36415; 36556; 36558; 36589; 36600; 71045; 73700; 76937; 76942; 77001; 80048; 80053; 80076; 80202; 81003; 82375; 82550; 82805; 82962; 83036; 83605; 84145; 84484; 85025; 85651; 86705; 86709; 86803; 87070; 87075; 87077; 87186; 87340; 87426; 87804; 88304; 90935; 93005; 93306; 93312; 93880; 99152; 99153; 99291; C1725; C1750; C1752; C1769; C1893; C9113; C9803; J0878; J0885; J1170; J1200; J1642; J1644; J1815; J2060; J2185; J2250; J2270; J2405; J2543; J2765; J3010; J3370; J3490; J7030; J7040; G0500